=== PATIENT | male | born 1960 | race Caucasian/White ===

== ENCOUNTER 2018-03-23 08:01 | Emergency (ER) | payer OTHER ==
[~2018-03-23] VITALS: Ht 182.9 cm; Wt 97.0 kg
[2018-03-23] MEDS ORDERED: LIDOCAINE 1% BUFFERED INJ 20 ML VIAL INFIL STA (08:06)
[2018-03-23] MEDS ORDERED: LIDOCAINE 1% BUFFERED INJ 20 ML VIAL ONE (08:07)
[2018-03-23 08:08] VITALS: TEMP 36.9; Ht 182.9 cm; Wt 97.0 kg
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
[2018-03-23] MEDS ORDERED: OMEP40CA41 PO (09:14)
[2018-03-23] MEDS ORDERED: CETI10TA10 PO (09:14)
[2018-03-23] MEDS ORDERED: AMLO10TA9 PO (09:14)
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
[2018-03-23] MEDS ORDERED: SODIUM CHLORIDE 0.9% 1000ML 1,000 ML IV STA (09:20)
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
[2018-03-23] MEDS ORDERED: OPTIRAY 320 IV PRN (09:30)
[2018-03-23 09:41] VITALS: O2SAT 96
[2018-03-23] MEDS ORDERED: ONDANSETRON INJ 2 MG/ML 2 ML VIAL ONE (09:46)
[2018-03-23] MEDS ORDERED: MoRPHine SULFATE 10 MG/ML CARP/VIAL ONE (09:46)
[2018-03-23 09:49] LABS: ISTAT CREATININE 0.7 mg/dl (0.6-1.3); ISTAT IONIZED CALCIUM 1.11 mmol/l (1.12-1.32); ISTAT POTASSIUM 3.9 mEq/L (3.3-5.0)
[2018-03-23 10:16] LABS: HEMATOCRIT 41.7 % (42-52); HEMOGLOBIN 14.7 g/dL (14.0-18.0); MEAN CELL VOLUME 97.7 fL (80-100); MEAN CORPUSCULAR HEMOGLOBIN 34.4 pg (25-34); MEAN CORPUSCULAR HGB CONC 35.3 g/dl (32-36); RED CELL DISTRIBUTION WIDTH CV 12.1 % (11.5-14.5); RED CELL DISTRIBUTION WIDTH SD 42.7 fL (36.4-46.3); WHITE BLOOD COUNT 7.72 K/uL (4.8-10.8)
[2018-03-23 10:31] LABS: ALBUMIN 3.3 gm/dl (3.4-5.0); ALKALINE PHOSPHATASE 162 U/L (45-117); ALT/SGPT 59 U/L (12-78); AST/SGOT 85 U/L (15-37); BLOOD UREA NITROGEN 6 mg/dl (7-18); CALCIUM 8.2 mg/dl (8.5-10.1); CARBON DIOXIDE 26 mmol/L (21-32); CKMB 4.5 ng/ml (0.5-3.6); CREATININE 0.78 mg/dl (0.60-1.40); GLUCOSE 109 mg/dl (70-99); POTASSIUM 3.7 mmol/L (3.5-5.1); SODIUM 136 mmol/L (136-145); TOTAL PROTEIN 7.4 gm/dl (6.4-8.2)
[2018-03-23 10:47] LABS: MEAN PLATELET VOLUME 9.7 fL (7.4-10.4); PLATELET COUNT 96 K/uL (130-400)
[2018-03-23 10:48] LABS: BASO % 0.1 %; BASO ABS # 0.01 K/uL (0-0.2); EOS % 0.6 %; EOS ABS # 0.05 K/uL (0-0.5); IG# 0.01 K/uL (0.00-0.02); LYMPH % 13.9 %; LYMPH ABS # 1.07 K/uL (1.2-3.4); MONO ABS # 0.54 K/uL (0.11-0.59); NEUT % 78.3 %; NEUT ABS # 6.04 K/uL (1.4-6.5)
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
[2018-03-23] MEDS ORDERED: MoRPHine SULFATE 10 MG/ML CARP/VIAL IV STA (10:56)
[2018-03-23] MEDS ORDERED: ONDANSETRON INJ 2 MG/ML 2 ML VIAL IV STA (10:56)
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
[2018-03-23] MEDS ORDERED: OXYC-57 PO (11:50)
[2018-03-23 12:47] VITALS: BP 149/88; PULSE 1; O2SAT 97
--- NOTE | 2018-03-23 14:02 | Pharmacy Progress Note ---
ED Pharmacist Counseling Note Date of Service: Mar 23, 2018. Received call from Paige (pharmacist) who noted patient was at pharmacy and believed that he should also have received a prescription for an antibiotic. Spoke with Dr. Day who authorized the following two prescriptions: Augmentin 875 mg tab 1 tab po BID x10 days, 0 refills Bacitracin topical ointment 1 application to affected area BID x10 days, 0 refills Paige read back above.
== END 2018-03-23 12:49 | disposition home or self-care (01) ==
LOC: C.EDC 08:06
DX: S12.691A Other nondisplaced fracture of seventh cervical vertebra, initial encounter for closed fracture (principal); S01.81XA Laceration without foreign body of other part of head, initial encounter; S22.39XA Fracture of one rib, unspecified side, initial encounter for closed fracture; V49.40XA Driver injured in collision with unspecified motor vehicles in traffic accident, initial encounter; I10 Essential (primary) hypertension; Z79.899 Other long term (current) drug therapy